=== PATIENT | female | born 1985 | race Hispanic/Latino ===

== ENCOUNTER 2021-05-11 09:14 | Day surgery (SDC) | payer OTHER ==
[2021-05-11] MEDS ORDERED: SODIUM CHLORIDE 0.9% 500 ML 500 ML IV SCH (11:00)
[2021-05-11] MEDS ORDERED: NITROGLYCERIN 0.4 MG TAB SUBL SL ONE ×2 (11:41→12:36)
[2021-05-11] MEDS ORDERED: ATROPINE 0.1% (1 MG/10 ML) CARDIAC SYRINGE ONE (11:41)
[2021-05-11] MEDS ORDERED: ADENOSINE 6 MG/2 ML INJ ONE (11:42)
[2021-05-11] MEDS ORDERED: EPINEPHrine 1 MG/10 ML SYRINGE ONE (11:43)
--- NOTE | 2021-05-11 11:48 | Short Stay Summary ---
Short Stay Documentation Date of service: 05/11/21 - History Principal diagnosis: Recurrent Syncope H&P: obtained from office Past Medical History: No medical history Past Surgical History: No surgical history Social history: no smoking, no alcohol abuse - Allergies and Medications Current Medications: Allergies No Known Allergies Allergy (Unverified 12/11/16 08:34) Home Medications Medication Instructions Recorded Confirmed Last Taken Type No Known Home Medications [No 12/11/16 12/11/16 Unknown History Reported Home Medications] Active Medications Sodium Chloride (Nacl 0.9% 500 Ml) 500 mls @ 50 mls/hr IV DIRECT JAYLA - Physical exam General appearance: no acute distress Integumentary: no rash, no abnormal pigmentation HEENT: Atraumatic, EOMI, Mucous membr. moist/pink Lungs: Clear to auscultation Heart: Normal S1, Normal S2 Gastrointestinal: normal Extremities: pulses intact, No edema, normal temperature Neurological: Normal speech, Normal tone, Sensation intact - Brief post op/procedure progress note Date of procedure: 05/11/21 Pre-op diagnosis: Recurrent Syncope Post-op diagnosis: same Surgeon: GHASSAN WILL Estimated blood loss: none Pathology: none Condition: stable - Hospital course Hospital course: Pt presented for outpatient tilt table study in the setting of recurrent syncope. Test noted to be positive. Pt tolerated study well. C/o mild nausea following study. Otherwise stable. Plan for discharge later today. Follow-up with Dr. Yoder on 06/01/2021 @ 9:15am ([phone]). - Disposition Condition at discharge: Good Disposition: 01 HOME / SELF CARE / HOMELESS - Discharge Diagnoses (1) Syncope Status: Acute Short Stay Discharge Plan Activity: advance as tolerated Diet: regular Follow up with: JONI NEGRETE JR, MD [Primary Care Provider] - 7 Days PARMINDER YODER MD [Staff Physician] - 06/01/21 9:15 am
[2021-05-11] MEDS ORDERED: ONDANSETRON 4 MG/2 ML INJ IV NR (13:48)
[2021-05-11 14:21] VITALS: BP 100/64
--- NOTE | 2021-05-19 01:44 | Tilt Table Report ---
DATE OF SERVICE: 05/11/2021 DATE OF PROCEDURE: 05/11/2021. TILT TABLE TEST PREPROCEDURE DIAGNOSIS: Recurrent syncope. PROCEDURE: Tilt table test. DESCRIPTION OF PROCEDURE: The patient was brought to the procedure in a postabsorptive state. She underwent passive head-up tilt table testing with constant electrocardiogram and blood pressure monitoring. The tilt protocol was a baseline tilt followed by sublingual nitroglycerin. The patient was tilted to 75 degrees in the erect position. During the procedure, the patient developed symptoms of nausea and diaphoresis and subsequently lost consciousness. At the point when the patient was developing nausea and diaphoresis, her blood pressure was not obtainable. She also had long pauses up to 8 seconds noted during the symptomatic period. Once she was placed in the supine position, her blood pressure returned and her heart rate increased into the 40s and 50s. The baseline heart rate was 84 beats per minute and the baseline blood pressure was 116/70 mmHg. Upon initial erect position, the patient's heart rate was 97 beats per minute and the patient's blood pressure was 131/82 mmHg. The patient was erect for 30 minutes without symptoms. Sublingual nitroglycerin was given. The patient's heart rate increased to 142 beats per minute with a peak blood pressure 133/88 mmHg. Approximately 4-5 minutes after receiving sublingual nitroglycerin, the patient's blood pressure was undetectable. She developed nausea and diaphoresis and subsequently lost consciousness. Of note, the patient had long pauses up to 8 seconds. COMPLICATIONS: None. 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 PLAN: 1. The patient was instructed to avoid dehydration. 2. The patient is scheduled to follow up with her primary [facility] traffic controller center. TID: [id number] RECEIPT: [id number] [facility]
== END 2021-05-11 14:40 | disposition home or self-care (01) ==
LOC: CATHLABREC 09:14
PROVIDERS: ATTEND Internal Medicine Cardiovascular Disease
DX: R55 Syncope and collapse (principal); Z79.899 Other long term (current) drug therapy; Z98.890 Other specified postprocedural states
CPT/HCPCS: 93660; J2405; J7040; J0153; J0171; J0461